=== PATIENT | female | born 1980 | race Caucasian/White ===

== ENCOUNTER 2024-02-04 22:01 | Emergency (ER) | payer BC, SELFPAY ==
[2024-02-04 22:03] VITALS: BP 113/74
[2024-02-04 22:25] LABS: % Basophils 0.6 % (0-2); % Eosinophils 1.8 % (0-6); % Immature Granulocytes 0.2 % (0-0.5); % Lymphocytes 19.3 % (20.5-51.1); % Monocytes 4.7 % (1.7-9.3); % Neutrophils 73.4 % (42.2-75.2); Absolute Basophils 0.1 10^3/uL (0-0.2); Absolute Eosinophils 0.2 10^3/uL (0-0.7); Absolute Lymphocytes 2.4 10^3/uL (1.2-3.4); Absolute Monocytes 0.6 10^3/uL (0.1-0.6); Absolute Neutrophils 9.1 10^3/uL (1.4-6.5); Hematocrit 42.7 % (37.0-47.0); Hemoglobin 14.2 g/dL (12.0-16.0); Mean Corp Hgb Conc. 33.3 g/dL (33.0-37.0); Mean Corpuscular Hgb 27.7 pg (27.0-31.0); Mean Corpuscular Volume 83.2 fL (81.0-99.0); Mean Platelet Volume 9.1 fL (7.4-10.4); Nucleated Red Blood Cells % 0 %; Platelet Count 277 10^3/uL (130-400); Red Blood Cell Count 5.13 10^6/uL (4.20-5.40); Red Cell Dist. Width 12.5 % (11.5-14.5); White Blood Cell Count 12.4 10^3/uL (4.8-10.8)
[2024-02-04 22:37] LABS: HCG, Serum Qualitative Screen Negative
[2024-02-04 22:39] LABS: ALT (SGPT) 11 U/L (0-35); AST (SGOT) 20 U/L (14-36); Albumin 4.3 g/dl (3.5-5.0); Alkaline Phosphatase 67 U/L (38-126); Blood Urea Nitrogen 14 mg/dl (7-17); Calcium 9.4 mg/dl (8.4-10.2); Carbon Dioxide 26 mmol/L (22-30); Chloride 102 mmol/L (98-107); Glucose 103 mg/dl (70-99); Potassium 4.4 mmol/L (3.5-5.1); Sodium 138 mmol/L (135-145); Total Bilirubin 0.5 mg/dl (0.2-1.3); Total Protein 6.6 g/dl (6.3-8.2); eGFR > 60.00
[2024-02-05 01:56] VITALS: BP 100/68
--- NOTE | 2024-02-05 02:17 | ED.GENMED ---
History of Present Illness
General
Chief Complaint: Flank Pain
Source: patient and spouse
Exam Limitations: none
Time Seen by Provider: 02/05/24 01:00
Nursing documentation reviewed up to this point in time: agreed with
History of Present Illness
History of Present Illness:
44-year-old female with no significant chronic medical issues who presents to the emergency room for evaluation of lower abdominal and flank pain. Patient reports onset of symptoms around 8 PM shortly after she finished in the shower. She reports
abrupt onset of rather significant pain in the lower abdomen and left flank. She reports that it was associated with rather intense nausea and 1 episode of vomiting. Symptoms have been persistent since then but they have generally improved and are
not as severe by the time of my assessment. No longer feels nauseated. She says she has had some recent dysuria and has been on Keflex for UTI. She denies any vaginal bleeding or discharge. Her last menstrual period was about 3 weeks ago. She
has not had recent fever or chills. She says she has never had similar symptoms in the past.
Past History
Past History
ED Past Medical History: None
ED Past Surgical History:
Social History
Personal:
Living: with family
Review of Systems
Review of Systems
All Other Systems: ROS reviewed and negative except as documented in HPI and ROS
Constitutional: Denies fever or chills
Respiratory: Denies trouble breathing
Cardiac: Denies chest pain
ABD/GI: Reports abdominal pain, nausea and vomiting; Denies diarrhea
: Reports dysuria and flank pain; Denies frequency or bleeding
Musculoskeletal: Denies neck pain or back pain
Neurological: Denies dizzy or headache
Phy Exam
Physical Exam
Physical Exam:
General: Awake, alert, oriented x3; no acute distress
Head: Normocephalic, atraumatic
Eyes: Conjunctiva normal, sclera anicteric
Throat: Airway intact, handling secretions
Neck: Trachea midline, supple without meningismus
Lungs: Clear to auscultation bilaterally, no wheezing, rales, rhonchi
Heart: Regular rate and rhythm, no murmurs, gallops, or rubs
Abd: Soft, non distended, tender to palpation across lower abdomen, maximal in the left lower quadrant
Back: No CVA tenderness
Neuro: No gross deficits
Skin: no rash
Extremities: Warm and well-perfused
Scores
Heart Failure Risk
Heart Failure Risk Score: Not Applicable
Heart Score for Chest Pain Patients
STEMI patient?: Not applicable
Withdrawal Assessment of Alcohol
Withdrawal Assessment Completed?: Not applicable
Course
Orders/Labs/Results
Orders:
Orders
02/04/24 22:08
Abdomen/Pelvis wo Contrast CT [CT Abd/pelvis Wo Iv Cont] Urgent
Comment:
Reason For Exam: left flank pain
02/04/24 22:09
Test Result ONCE
02/04/24 22:17
CMP [Comprehensive Metabolic Panel] Urgent
Complete Blood Count/With Diff Urgent
HCG, Serum Qualitative Screen Urgent
Abnormal Lab Results
02/04/24
22:17
WBC 12.4 H 10^3/uL
(4.8-10.8)
Absolute Neuts (auto) 9.1 H 10^3/uL
(1.4-6.5)
Lymphocytes % 19.3 L %
(20.5-51.1)
Glucose 103 H mg/dl
(70-99)
02/04/24 22:17
02/04/24 22:17
Vital Signs
Initial and Last Documented VS:
Initial Vital Signs
Temp Pulse Resp BP Pulse Ox
36.7 C 72 18 113/74 100
02/04/24 22:03 02/04/24 22:03 02/04/24 22:03 02/04/24 22:03 02/04/24 22:03
Last Documented Vital Signs
Temp Pulse Resp BP Pulse Ox
36.7 C 74 16 100/68 96
02/04/24 22:03 02/05/24 01:56 02/05/24 01:56 02/05/24 01:56 02/05/24 01:56
MDM/Problems Addressed
Differential Diagnosis Includes:
Nephrolithiasis, UTI/pyelonephritis, diverticulitis, ovarian cyst
MDM/Problems Addressed:
44-year-old female presents for evaluation of lower abdominal/flank pain that started rather abruptly this evening�symptoms have generally improved but not completely resolved. Vitals normal. Exam as above. She was seen in triage and had labs and
imaging ordered�she had a CBC which showed marginal leukocytosis, normal hemoglobin. Her CMP shows no clinically significant abnormalities. Her hCG is negative. She had a CT of the abdomen pelvis which showed small volume of hemoperitoneum and
right ovarian cyst�suspected ruptured hemorrhagic cyst. She is hemodynamically stable and has had stable vitals throughout what at this point has been 4 hours of ED observation and workup. Hemoglobin is normal. Case discussed with SUBSTANCE ABUSE THERAPIST for
review, awaiting recommendations.
Discussed with SUBSTANCE ABUSE THERAPIST�with stable vitals x 4 hours, stable hemoglobin, improving symptoms reasonable discharge with return precautions, follow-up in the office this week. Patient comfortable with this plan. All questions answered.
*Radiology
Radiology exam reviewed: radiology read reviewed
*Pulse Oximetry
Patient hypoxic: no
*Critical Care Note
Total Time (30-74mins, 75-104mins- exclusive of procedures): Not Applicable
Data Reviewed
Source: patient and spouse
Patient Management
Discussion with other providers: Video Engineer (Discussed with SUBSTANCE ABUSE THERAPIST)
ED Attending Note
-
Portions of this chart may have been created with voice recognition software.� Occasional wrong word or��sound alike� substitutions may have occurred due to the inherent limitations of voice recognition software.
Discharge Plan
Departure
Patient Disposition: Home (Routine Discharge)
Date of Disposition: 02/05/24
Time of Disposition: 02:52
Patient with high blood pressure during this ER visit?: No
Discharge Problem:
Hemorrhagic cyst of ovary
Instructions: Ovarian cysts
Prescriptions:
No Action
vit-iron fum-folic ac 1 EACH tablet
1 ea PO HS
acetaminophen 325 mg Tablet
650 mg PO Q4HPRN PRN (Reason: mild pain) Qty: 0 0RF
sennosides-docusate sodium [Senna Plus] 8.6-50 mg Tablet
1 tab PO DAILYPRN PRN (Reason: constipation) Qty: 0 0RF
nifedipine 30 mg Tablet Extended Release
30 mg PO DAILY Qty: 60 0RF
ibuprofen 600 mg Tablet
600 mg PO Q6HPRN PRN (Reason: cramps) Qty: 45 0RF
oxycodone-acetaminophen 5-325 mg Tablet
1 tab PO Q4HPRN PRN (Reason: moderate pain) Qty: 15 0RF
Referrals:
Efrem Lorenzo MD [Active] - Call in 1-3 days for appt
Jeremy Ortiz MD [Family Provider] -
Activity Restrictions/Additional Instructions:
Thank you for visiting the Emergency Department at [facility].
1. Please schedule a follow up appointment as directed. Call first thing tomorrow morning to make an appointment.
2. If indicated, please take your medications as instructed and indicated on discharge paperwork.
3. If any of your symptoms do not improve, or persist, or become more severe within 6-12 hours, please return to the emergency department for further care.
4. Please return to the emergency department if you develop a headache, neck pain/stiffness, fever greater than 100.4F, chest pain, shortness of breath, persistent nausea, vomiting, slurred speech, difficulty walking, numbness/tingling, weakness,
signs of infection or any other symptoms that are worrisome to you.
Please call [phone] if you have any questions.
Interventions
Interventions:
*Risk Screen - Suicide Last Done: 02/04/24 22:03
*General Assessment Last Done: 02/04/24 22:03
*Neglect/Abuse Screening Last Done: 02/04/24 22:03
*ED COVID-19 Vaccine History Last Done: 02/05/24 01:20
OT-Qtummw-Afpdknjpdy Assessment Last Done: 02/05/24 01:20
ED-Female Genitourinary Assessment Last Done: 02/05/24 01:20
Discharge Date and Time
Print Language: GREENLANDIC
[2024-02-05] MEDS: MOTRIN 600 MG PO (03:07)
== END 2024-02-05 03:32 | disposition home or self-care (01) ==
LOC: EMR 22:01
PROVIDERS: Emergency Medicine; EMERGENCY PHYSICIAN Emergency Medicine; FAMILY PHYSICIAN Internal Medicine
DX: N83.201 Unspecified ovarian cyst, right side (principal); Z87.440 Personal history of urinary (tract) infections
CPT/HCPCS: 99284; 74176; 80053; 84703; 85025

== ENCOUNTER → 2024-06-11 13:07 | Outpatient (REF) | payer BC, SELFPAY | LOC: HWRAD 13:07 | PROVIDERS: ATTENDING PHYSICIAN Obstetrics & Gynecology; FAMILY PHYSICIAN Internal Medicine | DX: N83.291 Other ovarian cyst, right side (principal); N83.201 Unspecified ovarian cyst, right side | CPT/HCPCS: 76830; 76856 ==